=== PATIENT | male | born 1990 | race Caucasian/White ===

== ENCOUNTER 2021-12-04 11:49 | Emergency (ER) | payer SELFPAY ==
[2021-12-04 13:19] LABS: BASOPHIL 0.6 % (0-2); EOSINOPHIL 1.7 % (0-5); HCT 30.2 % (42.0-52.0); HGB 9.2 g/dl (13.2-18.0); LYMPHOCYTE 18.8 % (15-48); MCH 21.5 pg (25.0-31.0); MCHC 30.5 g/dL (32.0-36.0); MCV 70.6 fL (78.0-100.0); MONOCYTE 6.2 % (0-12); MPV 8.3 fL (6.0-9.5); NEUTROPHIL 72.1 % (41-80); NRBC 0; PLT 505 K/uL (150-400); RBC 4.28 M/uL (4.70-6.00); RDW 19.4 % (11.5-14.0)
[2021-12-04 13:21] LABS: WBC 7.1 K/uL (4.0-10.5)
[2021-12-04 13:30] LABS: ALBUMIN 2.5 g/dL (3.4-5.0); BILIRUBIN - TOTAL 0.3 mg/dL (0.2-1.0); BUN/CREAT RATIO (CALC) 10.9 RATIO; CREATININE 1.1 mg/dL (0.67-1.17); GLOBULIN (CALCULATION) 4.7 g/dL; POTASSIUM 4.1 mmol/L (3.5-5.1); TOTAL PROTEIN 7.2 g/dL (6.4-8.2)
[2021-12-04 15:08] LABS: BILIRUBIN NEGATIVE (NEGATIVE); BLOOD NEGATIVE Ery/uL (NEGATIVE); CLARITY CLEAR (CLEAR); COLOR YELLOW (YELLOW); GLUCOSE (U) NORMAL (NORMAL); LEUKOCYTES NEGATIVE Leu/uL (NEGATIVE); NITRITE NEGATIVE (NEGATIVE); PROTEIN NEGATIVE (NEGATIVE); UROBILINOGEN 0.2 mg/dL (0.2-1.0)
[2021-12-04] MEDS ORDERED: DICYCLOMINE HCL20 MG PO (16:28)
[2021-12-04] MEDS ORDERED: ONDANSETRON ODT4 MG PO (16:28)
== END 2021-12-04 16:45 | disposition home or self-care (01) ==
LOC: FER 11:49
PROVIDERS: Physician Assistant
DX: K52.9 Noninfective gastroenteritis and colitis, unspecified (principal); K59.00 Constipation, unspecified; Z87.19 Personal history of other diseases of the digestive system; Z28.310 Unvaccinated for COVID-19
CPT/HCPCS: 36415; 80053; 81003; 85025; C9113; J0500; J2405; J7030; Q9967

== ENCOUNTER 2021-12-07 20:54 | Emergency (ER) | payer SELFPAY ==
[~2021-12-07 20:54] MED LIST: DICYCLOMINE HCL20 MG PO; ONDANSETRON ODT4 MG PO
[2021-12-07 23:05] LABS: BASOPHIL 0.6 % (0-2); EOSINOPHIL 4.5 % (0-5); HCT 31.3 % (42.0-52.0); HGB 9.5 g/dl (13.2-18.0); LYMPHOCYTE 20.8 % (15-48); MCH 21.3 pg (25.0-31.0); MCHC 30.4 g/dL (32.0-36.0); MCV 70.3 fL (78.0-100.0); MPV 8.1 fL (6.0-9.5); NEUTROPHIL 66.1 % (41-80); NRBC 0; PLT 575 K/uL (150-400); RBC 4.45 M/uL (4.70-6.00); RDW 19.2 % (11.5-14.0); WBC 10.8 K/uL (4.0-10.5)
[2021-12-07 23:06] LABS: BILIRUBIN NEGATIVE (NEGATIVE); BLOOD NEGATIVE Ery/uL (NEGATIVE); CLARITY CLEAR (CLEAR); COLOR YELLOW (YELLOW); GLUCOSE (U) NORMAL (NORMAL); LEUKOCYTES NEGATIVE Leu/uL (NEGATIVE); NITRITE NEGATIVE (NEGATIVE); PROTEIN NEGATIVE (NEGATIVE); SPECIFIC GRAVITY 1.025 (1.001-1.030); UROBILINOGEN 0.2 mg/dL (0.2-1.0)
[2021-12-07 23:11] LABS: AMPHETAMINES NEGATIVE (NEGATIVE); BARBITURATES NEGATIVE (NEGATIVE); ECSTASY (MDMA) NEGATIVE (NEGATIVE); MARIJUANA (THC) NEGATIVE (NEGATIVE); METHADONE NEGATIVE (NEGATIVE); OPIATES NEGATIVE (NEGATIVE); OXYCODONE NEGATIVE (NEGATIVE)
[2021-12-07 23:22] LABS: ALBUMIN 2.5 g/dL (3.4-5.0); BILIRUBIN - TOTAL 0.2 mg/dL (0.2-1.0); BUN/CREAT RATIO (CALC) 10.3 RATIO; CREATININE 1.17 mg/dL (0.67-1.17); GLOBULIN (CALCULATION) 4.8 g/dL; POTASSIUM 3.4 mmol/L (3.5-5.1); TOTAL PROTEIN 7.3 g/dL (6.4-8.2)
[2021-12-07] MEDS ORDERED: ONDANSETRON ODT4 MG PO (23:52)
[2021-12-07] MEDS ORDERED: NORCO 5-325 TA1 EACH PO (23:52)
[2021-12-07] MEDS ORDERED: CIPRO500 MG PO (23:54)
[2021-12-07] MEDS ORDERED: METRONIDAZOLE500 MG PO (23:54)
== END 2021-12-08 00:18 | disposition home or self-care (01) ==
LOC: FER 20:54
PROVIDERS: Nurse Practitioner Family
DX: R10.13 Epigastric pain (principal); R11.2 Nausea with vomiting, unspecified; Z28.310 Unvaccinated for COVID-19
CPT/HCPCS: 36415; 80053; 80305; 81003; 85025; J1885; J2405; J7030